=== PATIENT | female | born 1960 | race African-American/Black ===

== ENCOUNTER → 2019-10-07 12:12 | Outpatient (CLI) | payer OTHER, BC, SELFPAY ==
--- NOTE | ~2019-10-07 | MR_ITS ---
EXAMINATION: MR shoulder RT wo con DATE: 10/07/2019 12:54 INDICATION: Impingement syndrome at the right shoulder pain with right shoulder pain and limited rang e of motion. TECHNIQUE: Magnetic resonance imaging (MRI) of the right shoulder was performed without intravenous c ontrast. Sequences included axial PD-weighted FS FSE, coronal oblique PD-weighted FS FSE, coronal obl ique T2-weighted FS FSE, sagittal PD-weighted FS FSE, and sagittal T1-weighted SE. COMPARISON: Right shoulder radiographs dated 07/28/2019 FINDINGS: Coracoacromial arch: The acromion undersurface is flat in morphology (type I) with anterior and lateral downsloping. The c oracoacromial ligament is normal. Minimal acromioclavicular osteoarthritis. Rotator cuff: Mild supraspinatus and infraspinatus tendinopathy without discrete tear most prominent at the conjoin ed portion of the tendons. Subscapularis and teres minor tendons are normal. Normal rotator cuff musc le bulk and signal. Biceps tendon, glenoid labrum and glenohumeral cartilage: Long head of the biceps tendon is normal. Glenoid labrum is normal. Glenohumeral cartilage is normal. Fluid: Physiologic amount of fluid in the glenohumeral joint and biceps tendon sheath. No loose osteochondra l bodies. No abnormal fluid signal at the subacromial/subdeltoid bursa to suggest bursitis. Bones: Bone alignment is normal. There is mild edema surrounding a small erosion at the anterior middle face t footplate of the greater tuberosity likely related to rotator cuff disease. Otherwise normal marrow signal. No fracture or pathologic marrow replacing process. IMPRESSION: 1. Mild supraspinatus and infraspinatus tendinopathy without discrete tear. 2. Minimal acromioclavicular osteoarthritis. Reviewed, dictated and finalized at location B.
== END ==
PROVIDERS: Visit Provider Orthopaedic Surgery
DX: M75.41 Impingement syndrome of right shoulder (principal)
CPT/HCPCS: 73221

== ENCOUNTER 2019-10-20 11:33 | Outpatient (CLI) | payer OTHER, BC, SELFPAY ==
--- NOTE | 2019-10-20 11:42 | ECG_ITS ---
Measurements Intervals [place] Rate: 63 P: 43 MA: 166 QRS: -18 QRSD: 88 T: -9 QT: 389 QTc: 399 Interpretive Statements SINUS RHYTHM LOW QRS VOLTAGE IN PRECORDIAL LEADS VOLTAGE CRITERIA FOR LVH BORDERLINE T WAVE ABNORMALITY- INFERIOR LEADS BASELINE WANDER- V5 BORDERLINE ECG Electronically Signed On 10-20-2019 12:11:15 CDT by Pietro Angel D.O.
== END 2019-10-20 11:34 | disposition home or self-care (01) ==
PROVIDERS: PCP Family Medicine; Visit Provider Orthopaedic Surgery
DX: Z01.810 Encounter for preprocedural cardiovascular examination (principal)
CPT/HCPCS: 93005

== ENCOUNTER 2019-10-25 00:50 | Outpatient (CLI) | payer OTHER, BC, SELFPAY ==
[2019-10-25 18:37] LABS: SARS-CoV-2 RNA PCR Negative
== END 2019-10-25 00:51 | disposition home or self-care (01) ==
LOC: ANHCOVIDDT 00:50
PROVIDERS: PCP Family Medicine; Visit Provider Orthopaedic Surgery
DX: Z01.812 Encounter for preprocedural laboratory examination (principal); Z20.828 Contact with and (suspected) exposure to other viral communicable diseases
CPT/HCPCS: 87635; C9803; U0003

== ENCOUNTER 2019-10-28 01:14 | Day surgery (SDC) | payer OTHER, BC, SELFPAY ==
[2019-10-15 15:31] VITALS: BMI 42.5
[2019-10-28] VITALS (8 sets, daily range): BP systolic 109–131; BP diastolic 69–87; PULSE 61–86; RESP 11–20; TEMP 36.2; O2SAT 91–100
[2019-10-28] MEDS: ACETAMINOPHEN 500 MG TABLET 1000 MG PO (11:18)
[2019-10-28] MEDS: KETOROLAC 15 MG/ML VIAL (*BKC) IV PUSH (11:21)
[2019-10-28] MEDS: LACTATED RINGERS 1,000 ML 30 ML IV CONT ×2 (11:21→15:36)
--- NOTE | 2019-10-28 12:13 | WPDANESEPPF ---
Anes - Initial Pre Proc Eval Procedure: Operation Date: 10/28/19 13:00 Proposed Procedures p Right Shoulder Arthroscopy, Subacromial Decompression, Possible Limited Versus Extensive Debridement, Proceed As Indicated - Bennett Mahoney MD Date/Time: 10/28/19 12:13 Surgeon: Bennett Mahoney MD Pre Op Diagnosis: Impingement Syndrome Right Shoulder Patient Data Age: 59 Gender: F Height: 5 ft 3 in Weight: 108.7 kg Last Vital Signs Temp 36.2 C L 10/28/19 11:04 Pulse 61 10/28/19 11:04 Resp 18 10/28/19 11:04 BP 129/75 10/28/19 11:04 Pulse Ox 100 10/28/19 11:04 Allergies Allergy/AdvReac Type Severity Reaction Status Date / Time No Known Allergies Allergy Mild Verified 10/28/19 10:52 Home Medications Medication Instructions Recorded Confirmed Type albuterol sulfate See Rx Instructions .ROUTE 10/15/19 10/28/19 History .COMPLEX PRN atorvastatin 20 mg PO DAILY 10/15/19 10/28/19 History Patient hx anesthesia problems: none Family hx anesthesia problems: none PMFSH Past Medical History Medical History Eczema H/O migraine Impingement syndrome of right shoulder Mild intermittent asthma without complication Obesity Osteoarthritis of left knee Pure hypercholesterolemia Surgical History Surgical History History of arthroscopic knee surgery (~2008) History of knee replacement (~2008) Social History Social History Smoking status: Never smoker Second hand tobacco smoke exposure: No Alcohol intake: never Substance use: never Living arrangements: with family Gender identity (if verbalized by the patient): Female Anes - Eval Final PreProcedure Day of Procedure 10/28/19 12:13 Patient weight: morbidly obese Heart: regular rate and rhythm Lungs: clear to auscultation Airway: Mallampati scale class II Neurological: alert and oriented Last oral intake: >/= 8 hours ASA classification: III Emergent: no Anesthetic plan: proceed Anesthesia type and monitoring: general ETT and standard monitoring Informed Consent: The patient's anesthetic plan and its attendant risks and benefits were discussed with the patient/family/POA. Questions were solicited and answers provided to the satisfaction of the patient/family/POA.
--- NOTE | 2019-10-28 13:41 | WPDHPUPDATE1 ---
History and Physical Update Update Date/Time: 10/28/19 13:41 History and Physical has been reviewed, including an updated exam of the patient. There are NO changes in the patient's condition. Risks, benefits, and alternatives have been discussed and questions answered. Patient agrees to proceed with procedure.
--- NOTE | 2019-10-28 13:49 | WPDANESPNB ---
Anes - Peripheral Nerve Block Date/Time: 10/28/19 13:49 I have discussed with the patient/family/POA the placement of a peripheral nerve block for post-operative pain management, including associated risks, benefits, complications, and side effects. Alternative methods of post-operative analgesia were detailed. Questions were solicited and answers provided to the satisfaction of the patient/family/POA. Time-Out: A pre-procedural Time-Out was completed immediately before starting the procedure and confirmed: Patient Identification, Site, Procedure, Patient Position and the Availability of Requisite Equipment. Clinical Indications: Acute post-operative pain management requested by the operative surgeon. Nerve Block Insertion Note Anes-nerve block: interscalene right Patient position: other (sitting) Skin prep: chlorhexidine Needle: 22 gauge, stimulating, insulated echogenic needle. Needle length: 50 mm Technique: nerve stimulation lost at (mA) (0.3) and ultrasound Technique comment: mid 2mg [id number] Injectate: bupivacaine 0.5% with epi 5 mcg/ml (30ml) Observations: tolerated well Complications: none Procedure start time:: 1338 Procedure end time:: 1345
[2019-10-28] MEDS: ceFAZolin 2 GM/D5W 50 ML 2 GM/50 ML BAG IVPB (14:00)
--- NOTE | 2019-10-29 10:48 | PM.PROC ---
Procedure Note - Detailed Date of procedure: 10/28/19 Pre-op diagnosis: Impingement Syndrome Right Shoulder Post-op diagnosis: other ( 1. Partial-thickness tear supraspinatus rotator cuff 2. Impingement syndrome) Procedure performed: 1. Arthroscopic rotator cuff debridement both articular side and bursal side 2. Arthroscopic subacromial decompression Description of procedure: Low-grade partial-thickness tearing both articular and bursal side. No indication for suture repair. Significant tendinosis and evidence of subacromial impingement treated with acromioplasty and bursectomy. Coracoacromial ligament released. The glenohumeral articulation otherwise appeared normal and healthy. Subscapularis and biceps were normal. No labral tearing. Anesthesia: GLMA Surgeon: Bennett Mahoney MD Estimated blood loss (mL): 20 Complications: No immediate complications Condition: stable Disposition: PACU Findings: Brief history: The patient complained of persistent pain with overhead and reaching activities. Pain persisted despite physical therapy and cortisone injections. Operative details: Patient was given an interscalene block in the holding area. Preoperative antibiotics were given. The patient was brought to the operating room. Careful positioning in the beach chair was accomplished. The head neck were carefully positioned. A small bump was placed under the left shoulder. The shoulder was examined. The shoulder was prepped and draped in the usual sterile fashion. Standard posterior and anterior arthroscopic portals were established. The shoulder was inspected. Low-grade 10% tearing of the articular supraspinatus was identified and treated with gentle debridement. Attention was turned to the subacromial space. A complete bursectomy was performed. An accessory lateral portal was created. The supraspinatus showed low-grade mild fraying without definite tearing. Overall tendon quality was good. The acromion was clearly visualized. The coracoacromial ligament was released. Careful acromioplasty was performed utilizing views from both lateral and posterior. Loose bone fragments were carefully irrigated from the joint. The arthroscopic instruments were removed. The wounds were closed with interrupted 3-0 Monocryl suture followed by Steri-Strips. A sterile dressing was applied with a sling. The patient was extubated and brought to the recovery room in stable condition. There were no complications.
== END 2019-10-28 17:52 | disposition home or self-care (01) ==
PROVIDERS: PCP Family Medicine; Visit Provider Orthopaedic Surgery
PROC: (CPT 29805; principal; 2019-10-28 13:00)
DX: M75.111 Incomplete rotator cuff tear or rupture of right shoulder, not specified as traumatic (principal); M75.41 Impingement syndrome of right shoulder; G89.18 Other acute postprocedural pain; E66.01 Morbid (severe) obesity due to excess calories; Z68.41 Body mass index [BMI] 40.0-44.9, adult; J45.909 Unspecified asthma, uncomplicated; E78.5 Hyperlipidemia, unspecified; L30.9 Dermatitis, unspecified; M17.12 Unilateral primary osteoarthritis, left knee
CPT/HCPCS: 29823; 29826; 64415; 87635; A4565; A9270; C9803; J0330; J0690; J1100; J1885; J2250; J2370; J2405; J2704; J3010; J7120; U0003

== ENCOUNTER → 2020-06-12 08:45 | Outpatient (CLI) | payer OTHER, BC, SELFPAY ==
--- NOTE | ~2020-06-12 | MM_ITS ---
EXAMINATION: MM screening [facility] BI w amna HISTORY: Screening mammogram TECHNIQUE: Craniocaudal and mediolateral oblique 3-D tomosynthesis images were obtained and synthetic 2-D images were generated. CAD analysis was submitted and interpreted. COMPARISON: 10/19/2018, 09/19/2017, 06/03/2016 BREAST PARENCHYMAL COMPOSITION: There are scattered areas of fibroglandular density. FINDINGS: RIGHT BREAST: There is a possible mass in the middle third of the slightly upper inner breast 5.5 cm from the nipple. LEFT BREAST: There is no evidence of suspicious mass, calcification, or architectural distortion to s uggest malignancy. There has been no significant interval change. IMPRESSION: 1. Possible right breast mass. 2. Additional mammographic views and possible breast ultrasound are recommended. BI-RADS Category 0: Incomplete: Needs additional imaging evaluation. Reviewed, dictated and finalized at location A. IMPRESSION: 1. Possible right breast mass. 2. Additional mammographic views and possible breast ultrasound are recommended . BI-RADS Category 0: Incomplete: Needs additional imaging evaluation.
== END ==
PROVIDERS: PCP Family Medicine; Visit Provider Family Medicine
DX: Z12.31 Encounter for screening mammogram for malignant neoplasm of breast (principal); R92.8 Other abnormal and inconclusive findings on diagnostic imaging of breast
CPT/HCPCS: 77063; 77067

== ENCOUNTER → 2020-07-08 07:25 | Outpatient (CLI) | payer OTHER, BC, SELFPAY ==
--- NOTE | ~2020-07-08 | MMUS_ITS ---
EXAMINATION: MM diagnostic mammo unilat RT, US breast RT complete HISTORY: Follow-up right breast mass TECHNIQUE: Additional 3-D tomosynthesis images of the right breast were performed and synthetic 2-D i mages were generated. CAD analysis was submitted and interpreted. High resolution complete right cirilo st ultrasound was performed. COMPARISON: 06/12/2020 BREAST PARENCHYMAL COMPOSITION: Breast composed of scattered areas of fibroglandular density. FINDINGS: MAMMOGRAPHIC FINDINGS: There is a slightly irregular mass in the upper central aspect of the right breast, middle third pallavi uring approximately 8 mm. There are no suspicious calcifications or architectural distortion. ULTRASOUND: Complete right breast ultrasound: At 12:00, 4 cm from the nipple, there is an irregular shaped hypoec hoic mass with internal septations measuring 1 cm maximum dimension. This corresponds to the mammogra phic abnormality. At 10:00, 10 cm from the nipple, there is a 5 mm cyst. At 10:00, 11 cm from the nip ple, there is a 6 mm intramammary lymph node. IMPRESSION: 1. Slightly irregular shaped hypoechoic mass of the right breast at 12:00, 4 cm from the nipple measu ring up to 1 cm. 2. Ultrasound-guided right breast biopsy recommended. BI-RADS category 4, suspicious findings. Reviewed, dictated and finalized at location A. IMPRESSION: 1. Slightly irregular shaped hypoechoic mass of the right breast at 12:00, 4 cm from the nipple measuring up to 1 cm. 2. Ultrasound-guided right breast biopsy recommended. BI-RADS category 4, suspicious findings.
== END ==
PROVIDERS: PCP Family Medicine; Visit Provider Physician Assistant
DX: N63.15 Unspecified lump in the right breast, overlapping quadrants (principal)
CPT/HCPCS: 76641; 77065

== ENCOUNTER 2020-07-13 10:11 | Outpatient (CLI) | payer OTHER, BC, SELFPAY ==
--- NOTE | ~2020-07-13 | US_ITS ---
Consultation US DATE: 07/13/2020 11:15 INDICATION: Slightly irregular 1 cm mammographic mass reported in upper central right breast on 021 right diagnostic mammogram, with corresponding sonographic irregularly-shaped hypoechoic mass wit h internal septations at 12:00 4 cm from nipple. Patient presented for ultrasound-guided biopsy. COMPARISON: 07/08/2020 diagnostic right digital mammogram and complete right breast ultrasound 06/12/2020 bilateral digital screening mammogram FINDINGS: At 12:00 4 cm from the nipple there is a septated largely sonolucent lesion measuring up to 7.0 x 6.0 x 7.7 mm dimension, mildly diminished in size since 07/08/2020 at which time it measured up to 10 mm maximal dimension. There is no internal vascularity on color flow imaging. There is no posterior shadowing. Given the interval diminished size and relatively benign sonographic features including relative sono lucency with internal septation suggesting a septated cyst, the lack of internal vascularity or poste rior shadowing, I indicated to the patient that this is likely benign and in my opinion would be best followed with targeted six-month ultrasound examination rather than biopsy at this time. The patient agreed. IMPRESSION: BI-RADS Category 3: Probably benign finding at 12:00 4 cm from nipple Recommendation: 6 month targeted right breast ultrasound follow-up at 12:00 4 cm from nipple Reviewed, dictated and finalized at Location A. Reviewed, dictated and finalized at location A. IMPRESSION: BI-RADS Category 3: Probably benign finding at 12:00 4 cm from nipp le Recommendation: 6 month targeted right breast ultrasound follow-up at 12:00 4 c m from nipple
== END 2020-07-13 10:12 | disposition home or self-care (01) ==
LOC: ANHIMG 10:11
PROVIDERS: PCP Family Medicine; Visit Provider Family Medicine
DX: R92.8 Other abnormal and inconclusive findings on diagnostic imaging of breast (principal); Z53.8 Procedure and treatment not carried out for other reasons
CPT/HCPCS: 99199

== ENCOUNTER → 2021-02-03 08:29 | Outpatient (CLI) | payer OTHER, BC, SELFPAY ==
--- NOTE | ~2021-02-03 | US_ITS ---
US breast RT limited 02/03/2021 08:51 Indication: Follow-up right breast mass Procedure: High-resolution Limited ultrasound of the right breast. Comparison: 07/08/2020 Findings: There is a 5 mm cyst at 12:00, 4 cm from the nipple. No suspicious masses to suggest malign dago. Impression: 1: 5 mm simple cyst of the right breast at 12:00, 4 cm from the nipple. No sonographic evidence for m alignancy. Routine yearly screening mammogram and regular clinical breast examination are recommended. BI-RADS CATEGORY 2 - BENIGN FINDINGS Reviewed, dictated and finalized at location A. R FOLDING MACHINE OPERATOR Impression: 1: 5 mm simple cyst of the right breast at 12:00, 4 cm from the nipple. No sono graphic evidence for malignancy. Routine yearly screening mammogram and regular clinical breast examination are recommended. BI-RADS CATEGORY 2 - BENIGN FINDINGS
== END ==
PROVIDERS: PCP Family Medicine; Visit Provider Physician Assistant
DX: N60.01 Solitary cyst of right breast (principal)
CPT/HCPCS: 76642

== ENCOUNTER 2021-03-14 15:14 | Outpatient (CLI) | payer OTHER, BC, SELFPAY ==
--- NOTE | ~2021-03-14 | XR_ITS ---
XR lumbar spine min 4V DATE: 03/14/2021 15:51 INDICATION: Low back pain, right side for 1.5 months. No injury. TECHNIQUE: AP, lateral, coned lateral lumbosacral and bilateral oblique views COMPARISON: March 23, 2013 lumbar spine FINDINGS: Normal alignment of the lumbar spine. There is mild levoscoliosis of the thoracolumbar spin e. No fracture or bone destruction, spondylolysis or spondylolisthesis is evident. The lumbar pedicles a re intact. There is mild multilevel degenerative disc disease. The sacroiliac joints appear normal. IMPRESSION: Mild levoscoliosis Mild degenerative disc disease Reviewed, dictated and finalized at location A. ATION AGENT
== END 2021-03-14 15:15 | disposition home or self-care (01) ==
PROVIDERS: PCP Family Medicine; Visit Provider Family Medicine
DX: M51.36 Other intervertebral disc degeneration, lumbar region (principal)
CPT/HCPCS: 72110

== ENCOUNTER 2023-05-12 08:51 | Outpatient (CLI) | payer OTHER, BC, SELFPAY ==
--- NOTE | ~2023-05-12 | MM_ITS ---
EXAMINATION: MM screening [facility] BI w amna HISTORY: .. TECHNIQUE: Craniocaudal and mediolateral oblique 3-D tomosynthesis images were obtained and synthetic 2-D images were generated. CAD analysis was submitted and interpreted. COMPARISON: 02/03/2021 Limited right breast ultrasound 07/08/2020 diagnostic right mammogram and complete right breast ultrasound 06/12/2020 bilateral screening mammogram BREAST PARENCHYMAL COMPOSITION: There are scattered areas of fibroglandular density. FINDINGS: Occasional benign calcifications. There is no evidence of suspicious mass, calcification, o r architectural distortion to suggest malignancy in either breast. There has been no suspicious inter iain change. IMPRESSION: 1. No mammographic evidence of malignancy. 2. Recommend routine screening mammography in one year. BI-RADS Category 2: Benign finding(s). Reviewed, dictated and finalized at location A.
== END 2023-05-12 08:52 ==
LOC: MICIMG 08:54
PROVIDERS: PCP Family Medicine; Visit Provider Family Medicine
DX: Z12.31 Encounter for screening mammogram for malignant neoplasm of breast (principal)
CPT/HCPCS: 77063; 77067

== ENCOUNTER 2024-11-24 14:56 | Outpatient (CLI) | payer OTHER, BC, SELFPAY ==
--- NOTE | ~2024-11-24 | DEXA_ITS ---
Bone Density Report Name: SUNNY DUNCAN Age: 64 Sex: Female Ethnicity: Black Date of : 1960 Indication: postmenopausal; screening for osteoporosis; rheumatoid arthritis; Referring Provider: LAZ BECERRIL Study: Bone densitometry was performed. Exam Date: November 24, 2024 Accession number: [id number] Bone Density: Region BMD T-score Z-score Classification AP Spine(L1-L4) 0.981 -0.6 0.2 Normal Femoral Neck (Left) 0.911 0.6 0.9 Normal Total Hip (Left) 0.956 0.1 0.4 Normal Femoral Neck (Right) 0.960 1.0 1.2 Normal Total Hip (Right) 1.028 0.7 0.9 Normal Total Hip Mean 0.992 0.4 0.7 Normal World Health Organization criteria for BMD impression classify patients as: Normal (T-score at or above -1.0), Osteopenia (T-score between -1.0 and -2.5), or Osteoporosis (T-score at or below -2.5). 10-year Fracture Risk: FRAX not reported because: All T-scores for Spine Total, Hip Total, Femoral Neck at or above -1.0 Clinical Information Provided by Patient: Has rheumatoid arthritis Patient maximum height was 63 Menopause Age: 37 No regular weight bearing exercise Drinks caffeinated beverages Onset of menses at age 15 Number of children 2 Impression: The patient has normal bone mass. Discussion: BONE DENSITY IS ABOVE THE MINIMUM DESIRABLE LEVEL AT ALL SKELETAL SITES TESTED. This patient?s bone mineral density is above the minimum desirable level (T-score -1.0 or better) at all sites measured. The patient should follow a healthful lifestyle (good nutrition with adequate calcium and vitamin D, and appropriate weight-bearing exercise). Follow-Up: Consider repeating this study in 5 years or sooner if there is some new clinical indication. Reported by: WILBER on 11/24/2024 3:22:00 PM. Reviewed, dictated and finalized at location A.
== END 2024-11-24 14:57 | disposition home or self-care (01) ==
PROVIDERS: PCP Family Medicine; Visit Provider Student in an Organized Health Care Education/Training Program
DX: Z78.0 Asymptomatic menopausal state (principal)
CPT/HCPCS: 77080